=== PATIENT | male | born 1945 | race Caucasian/White ===

== ENCOUNTER 2022-06-09 18:20 | Emergency (ER) | payer MEDICARE, MEDICAID ==
[~2022-06-09] VITALS: Ht 165.1 cm; Wt 60.0 kg
[~2022-06-09 18:20] MED LIST: DICL100G15 TP; ESOM40CA PO; FLO0.4C PO; LORA-512 PO; MOME17SP5 NS; NORCO10T PO; TEST5GEL6 TD
[2022-06-09 18:56] LABS: BASOPHILS % (AUTO) 0.2 % (0-1); EOSINOPHILS # (AUTO) 0.1 X10'3 (0-0.9); EOSINOPHILS % (AUTO) 0.3 % (0-6); HEMATOCRIT 39.6 % (42.0-52.0); HEMOGLOBIN 13.1 g/dl (14.0-17.9); LYMPHOCYTES # (AUTO) 2.7 X10'3 (1.1-4.8); LYMPHOCYTES % (AUTO) 13.7 % (21-51); MEAN CORPUSCULAR HEMOGLOBIN 30.5 PG (27.0-31.0); MEAN CORPUSCULAR HGB CONC 33.1 g/dL (33.0-36.5); MEAN CORPUSCULAR VOLUME 92.3 FL (78-98); MEAN PLATELET VOLUME 8.9 FL (7.4-10.4); MONOCYTES # (AUTO) 1.7 X10'3 (0-0.9); MONOCYTES % (AUTO) 8.9 % (2-12); NEUTROPHILS # (AUTO) 15.1 X10'3 (1.8-7.7); NEUTROPHILS % (AUTO) 76.9 % (42-75); PLATELET COUNT 248 X10'3 (140-440); RED BLOOD COUNT 4.29 X10'6 (4.70-6.10); RED CELL DISTRIBUTION WIDTH 13.8 % (11.5-14.5); WHITE BLOOD COUNT 19.6 X10'3 (4.5-11.0)
[2022-06-09 19:12] LABS: ALANINE AMINOTRANSFERASE 27 U/L (12-78); ALBUMIN/GLOBULIN RATIO 0.8 (1.1-1.5); ALKALINE PHOSPHATASE 128 IU/L (46-116); ANION GAP 14 (8-16); ASPARTATE AMINO TRANSFERASE 43 U/L (10-37); BILIRUBIN,TOTAL 0.5 MG/DL (0.1-1.0); BLOOD UREA NITROGEN 88 MG/DL (7-18); BUN/CREATININE RATIO 19.8 (5.4-32.0); CALCIUM 8.1 MG/DL (8.5-10.1); CHLORIDE 95 MMOL/L (99-107); CREATININE 4.45 MG/DL (0.60-1.10); GLUCOSE 100 MG/DL (70-104); POTASSIUM 4.1 MMOL/L (3.5-5.1); SODIUM 129 MMOL/L (135-145); TOTAL CARBON DIOXIDE 19.8 MMOL/L (24-32); eGFR 13 ML/MIN
--- NOTE | 2022-06-09 19:40 | NUR ---
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 Pt has not had any further follow up
--- NOTE | 2022-06-09 20:07 | NUR ---
Pt c/o chest wall pain that increases with movement and palpitaion since 1700. Rec ASA and Nitro enroute. New onset of assending paralysis s/p fall 4 days ago. Bilat LE sensation greatly diminished with numbness sensation to abd/mid back and lower chest wall. Pt reports loss of sensation started in LE and has worsened over last 3 days. Pt also reports urinary inc due to inability to sense the need for voiding and is unable to feel wetness against his skin x 3-4 days. Pt thought symptoms would clear on its own but only worsened.
--- NOTE | 2022-06-09 20:12 | NUR ---
Airway patent SpO2 99% on RA with even resp at 20/min. Paramedics enroute marked mid chest at 1720 where numbness stops. Notified Dr Menjivar of findings, awaiting evaluation
[2022-06-09] MEDS ORDERED: LIDOcaine 2% 10ml TOPICAL JELLY (Urojet) TP ONE (21:30)
--- NOTE | 2022-06-09 22:05 | NUR ---
900ml dk chyna urine out FC, UA sent and covid swab obtained
[2022-06-09 22:19] LABS: CLARITY,URINE CLEAR (Clear); GLUCOSE, URINE NEGATIVE (Neg); KETONES,URINE NEGATIVE (Neg); LEUKOCYTE ESTERASE ,URINE NEGATIVE (Neg); OCCULT BLOOD,URINE LARGE (Neg); PROTEIN,URINE NEGATIVE (Neg); UROBILINOGEN,URINE 0.2 E.U/dL (0.2-1.0)
[2022-06-09 22:22] LABS: COLOR,URINE DARK YELLOW (Yellow); UA COLLECTION TYPE FOLEY CATH
[2022-06-09 22:30] LABS: NITRITES, URINE NEGATIVE (Neg)
[2022-06-09 22:31] LABS: BACTERIA,URINE FEW /HPF (Neg); RBC,URINE 20-50 /HPF (0-2); SQUAMOUS EPITHELIAL CELL,UR FEW /LPF (FEW)
--- NOTE | 2022-06-09 23:49 | NUR ---
Daughter Janette Dias called to check on pt, pt gave permission to release medical information. Janette Dias [phone]
[2022-06-10] MEDS ORDERED: dexamethasone sod phosphate 10mg/ml inj IV STA (00:21)
--- NOTE | 2022-06-11 05:32 | NUR ---
[facility] WAS CONTACTED FOR TRANSFER
[2022-06-11] MEDS ORDERED: ondansetron/PF 4mg/2ml inj IV ONE (10:05)
[2022-06-11 12:02] LABS: ALBUMIN 2.6 G/DL (3.4-5.0); ANION GAP 9 (8-16); BLOOD UREA NITROGEN 50 MG/DL (7-18); BUN/CREATININE RATIO 39.1 (5.4-32.0); CHLORIDE 102 MMOL/L (99-107); CREATININE 1.28 MG/DL (0.60-1.10); GLUCOSE 129 MG/DL (70-104); POTASSIUM 3.7 MMOL/L (3.5-5.1); SODIUM 136 MMOL/L (135-145); TOTAL CARBON DIOXIDE 25.2 MMOL/L (24-32); eGFR 54 ML/MIN
[2022-06-11] MEDS ORDERED: dexamethasone sod phosphate 10mg/ml inj IV ONE (13:00)
[2022-06-11] MEDS ORDERED: diazepam 5mg tablet PO ONE ×2 (16:10→22:35)
[2022-06-11] MEDS ORDERED: mag hydrox/Alum hydrox/simeth 30ml oral suspension PO ONE (20:15)
--- NOTE | 2022-06-12 08:30 | NUR ---
Pt repositioned in bed and propped on pillows.
--- NOTE | 2022-06-12 09:20 | NUR ---
Transfer center was contacted by port warden and inquired on transfer status, awaiting transfer center contacting Neuro surgeon on acceptance.
--- NOTE | 2022-06-12 12:00 | NUR ---
Spoke with ED Dr. Higgins and addressing med decadron, IV fluids, F/U lab draws and inquired if pts diet could be advanced. placing orders.
--- NOTE | 2022-06-12 12:10 | NUR ---
Verbal order to advance pt diet to regular diet from Dr. Higgins.
[2022-06-12 12:31] LABS: BASOPHILS % (AUTO) 0.4 % (0-1); EOSINOPHILS # (AUTO) 0.1 X10'3 (0-0.9); EOSINOPHILS % (AUTO) 0.7 % (0-6); HEMATOCRIT 37.5 % (42.0-52.0); HEMOGLOBIN 12.7 g/dl (14.0-17.9); LYMPHOCYTES # (AUTO) 4.5 X10'3 (1.1-4.8); LYMPHOCYTES % (AUTO) 35.5 % (21-51); MEAN CORPUSCULAR HGB CONC 33.8 g/dL (33.0-36.5); MEAN CORPUSCULAR VOLUME 91.8 FL (78-98); MEAN PLATELET VOLUME 8.6 FL (7.4-10.4); MONOCYTES % (AUTO) 7.7 % (2-12); NEUTROPHILS # (AUTO) 7.1 X10'3 (1.8-7.7); NEUTROPHILS % (AUTO) 55.7 % (42-75); PLATELET COUNT 234 X10'3 (140-440); RED BLOOD COUNT 4.09 X10'6 (4.70-6.10); RED CELL DISTRIBUTION WIDTH 13.5 % (11.5-14.5); WHITE BLOOD COUNT 12.7 X10'3 (4.5-11.0)
[2022-06-12 12:48] LABS: ALANINE AMINOTRANSFERASE 23 U/L (12-78); ALBUMIN 2.4 G/DL (3.4-5.0); ALBUMIN/GLOBULIN RATIO 0.7 (1.1-1.5); ALKALINE PHOSPHATASE 114 IU/L (46-116); ANION GAP 5 (8-16); ASPARTATE AMINO TRANSFERASE 25 U/L (10-37); BILIRUBIN,TOTAL 0.3 MG/DL (0.1-1.0); BLOOD UREA NITROGEN 22 MG/DL (7-18); BUN/CREATININE RATIO 26.5 (5.4-32.0); CALCIUM 7.9 MG/DL (8.5-10.1); CHLORIDE 103 MMOL/L (99-107); CREATININE 0.83 MG/DL (0.60-1.10); GLUCOSE 102 MG/DL (70-104); POTASSIUM 3.9 MMOL/L (3.5-5.1); SODIUM 135 MMOL/L (135-145); TOTAL CARBON DIOXIDE 27.2 MMOL/L (24-32); TOTAL PROTEIN 5.9 G/DL (6.4-8.2); eGFR 90 ML/MIN
[2022-06-12] MEDS: normal saline 1000ml 1,000 ML IV SCH ×2 (12:48→22:05)
--- NOTE | 2022-06-12 14:30 | NUR ---
Pt C/O pain and burning sensation of BLE. Received VO from Dr. Higgins, Valium 5mg PO Q12 hr PRN leg pain.
[2022-06-12] MEDS: dexamethasone 4mg/ml inj IV SCH ×2 (14:48→20:00)
[2022-06-12] MEDS ORDERED: diazepam 5mg tablet PO PRN (16:15)
--- NOTE | 2022-06-12 18:47 | NUR ---
RN provided repositioning, turning pt to left side and elevating heels. Additionally, RN provided paty/talbert care. Colostomy bag intact, stooling.
[2022-06-12] MEDS ORDERED: docusate sod 100mg capsule PO ONE (22:30)
--- NOTE | 2022-06-13 01:41 | NUR ---
Assumed pt care. Pt resting in hospital bed.
--- NOTE | 2022-06-13 04:48 | NUR ---
Pt sleeping. No distress.
[2022-06-13] MEDS ORDERED: dexamethasone 4mg/ml inj IV SCH ×2 (04:56→04:59)
[2022-06-13 05:20] VITALS: BP 139/76
--- NOTE | 2022-06-13 06:00 | NUR ---
[facility] team bedside. Report given.
--- NOTE | 2022-06-13 06:08 | NUR ---
Pt transferred via [facility].
--- NOTE | 2022-06-13 06:25 | NUR ---
Report called to [phone], SHERRY Tracy. Pt going to Room 834, Bed 2.
== END 2022-06-13 06:40 | disposition short-term general hospital (02) ==
LOC: ER 18:21
DX: N17.9 Acute kidney failure, unspecified (principal); Z20.822 Contact with and (suspected) exposure to COVID-19; G83.10 Monoplegia of lower limb affecting unspecified side; R33.9 Retention of urine, unspecified; E87.1 Hypo-osmolality and hyponatremia; R79.89 Other specified abnormal findings of blood chemistry; D72.829 Elevated white blood cell count, unspecified; W19.XXXA Unspecified fall, initial encounter; Y93.89 Activity, other specified; Y92.89 Other specified places as the place of occurrence of the external cause; Y99.8 Other external cause status
CPT/HCPCS: 36415; 71045; 72131; 80048; 80053; 81001; 83605; 83880; 84145; 84484; 85025; 87040; 87088; 87811; 93005; 96361; 96374; 96375; 96376; 99285; J1100; J7030

== ENCOUNTER 2022-08-19 04:05 | Emergency (ER) | payer MEDICARE, MEDICAID ==
[~2022-08-19] VITALS: Ht 167.6 cm; Wt 60.0 kg
[2022-08-19] MEDS ORDERED: LIDOcaine 2% 10ml TOPICAL JELLY (Urojet) TP ONE (04:25)
[2022-08-19] MEDS ORDERED: ciprofloxacin 250mg tablet PO ONE (04:45)
[2022-08-19 04:53] LABS: CLARITY,URINE CLOUDY (Clear); COLOR,URINE YELLOW (Yellow); GLUCOSE, URINE NEGATIVE (Neg); KETONES,URINE NEGATIVE (Neg); LEUKOCYTE ESTERASE ,URINE MODERATE (Neg); NITRITES, URINE POSITIVE (Neg); OCCULT BLOOD,URINE SMALL (Neg); PROTEIN,URINE TRACE mg/dl (Neg); UROBILINOGEN,URINE 0.2 E.U/dL (0.2-1.0)
[2022-08-19 04:56] LABS: UA COLLECTION TYPE FOLEY CATH
[2022-08-19 05:03] LABS: BACTERIA,URINE 4+ /HPF (Neg); SQUAMOUS EPITHELIAL CELL,UR NONE SEEN /LPF (FEW); WBC,URINE TNTC /HPF (0-4); YEAST MANY /HPF (NEGATIVE)
[2022-08-19] MEDS ORDERED: CIPR-259 PO (05:10)
[2022-08-19] MEDS ORDERED: CefTRIAXone 250MG IM Kit w/LIDOcaine IM ONE (05:15)
--- NOTE | 2022-08-19 08:51 | NUR ---
PTS SON CALLED AND HE IS UNABLE TO PROVIDE TRANSPORT HOME FOR PATIENT, NOR IS HE ABLE TO ASK ANY FRIENDS, FAMILY OR NEIGHBORS FOR A RIDE. SOCIAL WORK CONSULT ORDERED.
[2022-08-19] MEDS ORDERED: ondansetron/PF 4mg/2ml inj IV ONE (09:00)
[2022-08-19] MEDS ORDERED: morphine 4 MG/ML inj SYRINge IV ONE (09:00)
--- NOTE | 2022-08-19 10:29 | NUR ---
PT'S SON CALLED, STATED THAT THEY HAVE BEEN TRYING TO FIND TRANSPORTATION TO BRING PT BACK HOME. STATED THAT A TRANSPORTATION SERVICE WAS USED YESTERDAY TO TAKE PT TO HIS DR'S APPOINTMENT YESTERDAY. WAS ASKED TO FIND OUT WHICH SERVICE WAS USED SO WE MAY CONTACT THEM TO TRANSPORT PT HOME. FAMILY STATED THEY WILL CALL BACK WITH THE INFORMATION
[2022-08-19] MEDS ORDERED: morphine 2 MG/ML inj. syringe IV ONE (12:30)
[2022-08-19 14:06] VITALS: BP 160/82
--- NOTE | 2022-08-23 09:25 | NUR ---
LAB REPORTED THE URINE CULTURE AND SENSITIVITY THAT WAS PERFORMED ON 08/19/22. PATIENT WAS DC WITH RX FOR CIPROFLOXACIN. SENSITIVITY IDENTIFIED THAT ONE OF THE ORGANISMS IDENTIFIED WAS RESISTENT TO CIPROFLOXACIN. ER MD, DR. MASON, NOTIFIED OF REPORT AND ADDITIONAL ANTIBIOTIC (BACTRIM DS) WAS ORDERED. PATIENT AND HIS DAUGHTER, VANE LOUISE, WERE NOTIFIED OF ADDITIONAL RX FOR ANTIBIOTIC THAT WAS CALLED IN TO [facility]. PATIENT'S DAUGHTER WILL SUPERVISOR GROWER THE NEW MEDICATION AND HAVE PATIENT START IT TODAY.
== END 2022-08-19 14:07 | disposition home or self-care (01) ==
LOC: ER 04:06
DX: N13.9 Obstructive and reflux uropathy, unspecified (principal); N39.0 Urinary tract infection, site not specified; J45.909 Unspecified asthma, uncomplicated; G89.29 Other chronic pain; F17.200 Nicotine dependence, unspecified, uncomplicated; Z98.890 Other specified postprocedural states; Z79.899 Other long term (current) drug therapy
CPT/HCPCS: 51702; 81001; 87077; 87088; 87186; 96372; 96374; 96375; 96376; 99285; J0696; J2270; J2405; A4340

== ENCOUNTER 2022-08-20 19:14 | Emergency (ER) | payer MEDICARE, MEDICAID ==
[~2022-08-20] VITALS: Ht 170.2 cm; Wt 59.8 kg
[~2022-08-20 19:14] MED LIST changes: +CIPR-259 PO
[2022-08-21] MEDS ORDERED: valacyclovir 500mg tablet PO SCH (00:10)
[2022-08-21] MEDS ORDERED: gabapentin 400mg capsule PO SCH (00:10)
[2022-08-21] MEDS ORDERED: HYDR-3965 PO ×3 (00:15→15:08)
[2022-08-21] MEDS ORDERED: VALA100031 PO ×3 (00:15→15:08)
[2022-08-21] MEDS ORDERED: GABA-530 PO ×3 (00:15→15:08)
[2022-08-21] MEDS ORDERED: fentaNYL/PF 50MCG/1 ML 2ML syringe IV ONE ×2 (00:20→01:10)
[2022-08-21] MEDS ORDERED: morphine 10mg/ml inj. IM ONE (00:20)
--- NOTE | 2022-08-21 00:37 | NUR ---
General assessment reviewed by RN.
[2022-08-21] MEDS ORDERED: ketorolac trometh. 30mg/ml inj. IV ONE (01:10)
[2022-08-21] MEDS ORDERED: HYDROcodone/acetaminophen 10/325mg tab PO ONE (02:15)
[2022-08-21 02:29] VITALS: BP 123/83
== END 2022-08-21 03:53 | disposition home or self-care (01) ==
LOC: ER 19:15
DX: B02.9 Zoster without complications (principal); C61 Malignant neoplasm of prostate; R52 Pain, unspecified; N39.0 Urinary tract infection, site not specified; Z91.041 Radiographic dye allergy status
CPT/HCPCS: 96372; 96374; 96375; 96376; 99285; J1885; J2274; J3010

== ENCOUNTER 2022-11-17 23:05 | Emergency (ER) | payer MEDICARE, MEDICAID ==
[~2022-11-17] VITALS: Ht 167.6 cm; Wt 59.1 kg
[~2022-11-17 23:05] MED LIST changes: -CIPR-259 PO; +GABA-530 PO; +HYDR-3965 PO; +VALA100031 PO
--- NOTE | 2022-11-18 08:44 | NUR ---
PATIENT ASSISTED WITH HOB ELEVATION AND POSITIONED FOR COMFORT TO EAT BREAKFAST AT THIS TIME. NO SIGNS OF DISTRESS, NOTIFIED ETA FOR TRANSPORT IS 1130.
--- NOTE | 2022-11-18 10:56 | NUR ---
[facility] AT BEDSIDE TO TRANSPORT PATIENT AT THIS TIME.
== END 2022-11-18 11:06 | disposition home or self-care (01) ==
LOC: ER 23:05
DX: T83.098A Other mechanical complication of other urinary catheter, initial encounter (principal); N13.9 Obstructive and reflux uropathy, unspecified; G89.29 Other chronic pain; M54.9 Dorsalgia, unspecified; J45.909 Unspecified asthma, uncomplicated; Z90.49 Acquired absence of other specified parts of digestive tract; Z88.8 Allergy status to other drugs, medicaments and biological substances; Z79.899 Other long term (current) drug therapy
CPT/HCPCS: 51702; 99284; A4338; A4358

== ENCOUNTER 2023-07-27 07:26 | Emergency (ER) | payer BC, MEDICAID ==
[~2023-07-27] VITALS: Ht 170.2 cm; Wt 63.6 kg
[2023-07-27 07:31] VITALS: TEMP 97
[2023-07-27] MEDS ORDERED: LidoCAINE 2% Topical Jelly 11mL syringe TOP ONE (07:55)
[2023-07-27 08:54] VITALS: BP 183/97; PULSE 118; O2SAT 98
[2023-07-27 09:40] VITALS: RESP 19
== END 2023-07-27 14:42 | disposition home or self-care (01) ==
LOC: ER 07:27
DX: T83.098A Other mechanical complication of other urinary catheter, initial encounter (principal); M54.9 Dorsalgia, unspecified; J45.909 Unspecified asthma, uncomplicated; G89.29 Other chronic pain; Z85.9 Personal history of malignant neoplasm, unspecified; Z90.49 Acquired absence of other specified parts of digestive tract; Z79.899 Other long term (current) drug therapy; Z79.2 Long term (current) use of antibiotics; Y82.8 Other medical devices associated with adverse incidents
CPT/HCPCS: 51702; 99284; A4314

== ENCOUNTER 2023-09-13 11:32 | Emergency (ER) | payer BC, MEDICAID ==
[~2023-09-13] VITALS: Ht 175.3 cm; Wt 59.0 kg
[2023-09-13 11:48] VITALS: TEMP 98.1
[2023-09-13 13:02] LABS: BILIRUBIN,URINE NEGATIVE (Neg); CLARITY,URINE CLOUDY (Clear); COLOR,URINE YELLOW (Yellow); GLUCOSE, URINE NEGATIVE (Neg); KETONES,URINE NEGATIVE (Neg); LEUKOCYTE ESTERASE ,URINE LARGE (Neg); NITRITES, URINE POSITIVE (Neg); OCCULT BLOOD,URINE MODERATE (Neg); PH,URINE 6.5 (4.8-8.0); PROTEIN,URINE NEGATIVE (Neg); UROBILINOGEN,URINE 0.2 E.U/dL (0.2-1.0)
[2023-09-13 13:03] LABS: BASOPHILS % (AUTO) 0.2 % (0-1); EOSINOPHILS # (AUTO) 0.1 X10'3 (0-0.9); EOSINOPHILS % (AUTO) 0.4 % (0-6); HEMATOCRIT 43.2 % (42.0-52.0); HEMOGLOBIN 14.4 g/dl (14.0-17.9); LYMPHOCYTES # (AUTO) 1.6 X10'3 (1.1-4.8); MEAN CORPUSCULAR HEMOGLOBIN 31.2 PG (27.0-31.0); MEAN CORPUSCULAR HGB CONC 33.4 g/dL (33.0-36.5); MEAN CORPUSCULAR VOLUME 93.3 FL (78-98); MEAN PLATELET VOLUME 8.9 FL (7.4-10.4); MONOCYTES % (AUTO) 6.9 % (2-12); NEUTROPHILS % (AUTO) 81.5 % (42-75); PLATELET COUNT 222 X10'3 (140-440); RED BLOOD COUNT 4.63 X10'6 (4.70-6.10); RED CELL DISTRIBUTION WIDTH 14.2 % (11.5-14.5); WHITE BLOOD COUNT 14.7 X10'3 (4.5-11.0)
[2023-09-13 13:09] LABS: ALBUMIN 3.3 G/DL (3.4-5.0); ANION GAP 6 (8-16); BLOOD UREA NITROGEN 13 MG/DL (7-18); CALCIUM 7.8 MG/DL (8.5-10.1); CHLORIDE 104 MMOL/L (99-107); CREATININE 0.65 MG/DL (0.60-1.10); GLUCOSE 100 MG/DL (70-104); POTASSIUM 3.2 MMOL/L (3.5-5.1); SODIUM 141 MMOL/L (135-145); TOTAL CARBON DIOXIDE 31.2 MMOL/L (24-32); eCRCL 78 ML/MIN; eGFR > 90 ML/MIN
[2023-09-13 13:09] LABS: UA COLLECTION TYPE FOLEY CATH
[2023-09-13 13:11] LABS: BACTERIA,URINE 4+ /HPF (Neg); RBC,URINE 20-50 /HPF (0-2); SQUAMOUS EPITHELIAL CELL,UR FEW /LPF (FEW); WBC,URINE 50-100 /HPF (0-4)
[2023-09-13 13:12] LABS: WBC CLUMPS,URINE FEW /HPF (NEGATIVE)
[2023-09-13] MEDS ORDERED: CEPH-585 PO (13:40)
[2023-09-13] MEDS: CefTRIAXone 1000mg inj IM ONE (14:10)
[2023-09-13] MEDS: CefTRIAXone 250MG inj IM ONE (14:22)
[2023-09-13 14:24] VITALS: BP 132/74; PULSE 94; RESP 17; O2SAT 96
== END 2023-09-13 16:00 | disposition home or self-care (01) ==
LOC: ER 11:32
DX: N39.0 Urinary tract infection, site not specified (principal); R33.9 Retention of urine, unspecified; J45.909 Unspecified asthma, uncomplicated; G89.29 Other chronic pain; M54.9 Dorsalgia, unspecified; Z79.899 Other long term (current) drug therapy; Z88.8 Allergy status to other drugs, medicaments and biological substances
CPT/HCPCS: 36415; 51702; 80048; 81001; 85025; 96372; 99284; J0696; A4314; A4338; A4340; A4358

== ENCOUNTER 2024-02-26 07:43 | Emergency (ER) | payer BC ==
[~2024-02-26] VITALS: Ht 172.7 cm; Wt 53.7 kg
[~2024-02-26 07:43] MED LIST changes: +CEPH-585 PO
[2024-02-26 07:50] VITALS: TEMP 98
[2024-02-26 08:12] LABS: BASOPHILS # (AUTO) 0.1 X10'3 (0-0.2); BASOPHILS % (AUTO) 0.7 % (0-1); EOSINOPHILS # (AUTO) 0.2 X10'3 (0-0.9); EOSINOPHILS % (AUTO) 1.5 % (0-6); HEMATOCRIT 44.3 % (42.0-52.0); HEMOGLOBIN 14.6 g/dl (14.0-17.9); LYMPHOCYTES # (AUTO) 2.6 X10'3 (1.1-4.8); LYMPHOCYTES % (AUTO) 22.5 % (21-51); MEAN CORPUSCULAR HEMOGLOBIN 30.5 PG (27.0-31.0); MEAN CORPUSCULAR HGB CONC 32.9 g/dL (33.0-36.5); MEAN CORPUSCULAR VOLUME 92.6 FL (78-98); MEAN PLATELET VOLUME 9.9 FL (7.4-10.4); MONOCYTES # (AUTO) 0.9 X10'3 (0-0.9); MONOCYTES % (AUTO) 7.7 % (2-12); NEUTROPHILS # (AUTO) 7.8 X10'3 (1.8-7.7); NEUTROPHILS % (AUTO) 67.6 % (42-75); PLATELET COUNT 164 X10'3 (140-440); RED BLOOD COUNT 4.78 X10'6 (4.70-6.10); RED CELL DISTRIBUTION WIDTH 15.6 % (11.5-14.5); WHITE BLOOD COUNT 11.5 X10'3 (4.5-11.0)
[2024-02-26 08:31] LABS: ALBUMIN 3.5 G/DL (3.4-5.0); ANION GAP 9 (8-16); BLOOD UREA NITROGEN 8 MG/DL (7-18); BUN/CREATININE RATIO 11.9 (10.0-20.0); CALCIUM 8.9 MG/DL (8.5-10.1); CHLORIDE 100 MMOL/L (99-107); CREATININE 0.67 MG/DL (0.60-1.10); GLUCOSE 100 MG/DL (70-104); POTASSIUM 3.2 MMOL/L (3.5-5.1); PRO BRAIN NATRIURETIC PEPTIDE 2463 PG/ML (0-450); SODIUM 136 MMOL/L (135-145); eCRCL 68 ML/MIN; eGFR > 90 ML/MIN
[2024-02-26 11:16] VITALS: BP 123/74; PULSE 73; RESP 16; O2SAT 98
== END 2024-02-26 15:00 | disposition home or self-care (01) ==
LOC: ER 07:44
DX: T83.098A Other mechanical complication of other urinary catheter, initial encounter (principal); J45.909 Unspecified asthma, uncomplicated; G89.29 Other chronic pain; M54.9 Dorsalgia, unspecified; Z91.041 Radiographic dye allergy status; Z79.2 Long term (current) use of antibiotics; Z79.1 Long term (current) use of non-steroidal anti-inflammatories (NSAID); Z79.899 Other long term (current) drug therapy; Z90.49 Acquired absence of other specified parts of digestive tract
CPT/HCPCS: 36415; 51702; 71045; 80048; 83880; 84484; 85025; 93005; 99285; A4314; A4358